=== PATIENT | female | born 1985 | race African-American/Black ===

== ENCOUNTER 2020-04-10 19:29 | Emergency (ER) | payer SELFPAY ==
[~2020-04-10] VITALS: Ht 165.1 cm; Wt 65.0 kg
--- NOTE | 2020-04-10 21:08 | RAD ---
Exam: CT head and cervical spine without contrast INDICATION: Head and neck pain, trauma TECHNIQUE: Sequential axial images through the head and cervical spine were obtained without the administration of IV contrast. Comparisons: None FINDINGS: Head No focal parenchymal lesion or hemorrhage is identified. There is no midline shift or sulcal effacement. No acute vascular territory infarction is identified. Delarosa-white distinction is preserved. The ventricular system is within normal limits without compression hydrocephalus. The basal cisterns are well maintained. The visualized portions of the paranasal sinuses and mastoid air cells are well-pneumatized. No acute fractures. Cervical spine: Vertebral body heights and alignment are well-maintained. Fracture to the cervical spine is not identified. No significant spondylotic change in the cervical spine. Visualized soft tissues are unremarkable. IMPRESSION: 1. No acute intracranial abnormality. 2. Negative CT C-spine for acute traumatic injury. Exposure: One or more of the following in the visualized dose reduction techniques were utilized for this examination: 1. Automated exposure control 2. Adjustment of the MA and/or KV according to patient size Use of iterative of reconstructive technique Electronically signed by: Michael Cristina MD (04/10/2020 9:05 PM) [id number]
[2020-04-10] MEDS ORDERED: DEXAMETHASONE 4 MG TABLET PO SCH (22:00)
[2020-04-10] MEDS ORDERED: diazePAM 5 MG TABLET PO ONE (22:00)
[2020-04-10] MEDS ORDERED: NAPR-514 PO (22:18)
[2020-04-10] MEDS ORDERED: CYCL10TA2 PO (22:18)
--- NOTE | 2020-04-10 22:18 | PHYS DOC ---
Past Medical History Past Medical History: No Pertinent History Past Surgical History: No Surgical History Smoking Status: Never Smoker Alcohol Use: None General Adult EDM: Chief Complaint: HEAD INJURY/TRAUMA HPI: HPI: Patient is a 34 year old AA female, accompanied by her , who presents to the emergency room after being struck by falling 15 ft 2x8 boards at [employer]. Patient states that she and her were loading lumbar when lumbar came falling down and struck her left side of her neck and head patient reports a brief loss of consciousness, she denies any nausea or vomiting. She currently complains of head and neck pain. She denies any vision changes, back pain, saddle anesthesia, or loss of bowel/bladder control. The patient denies any shortness of breath, hemoptysis, cough, numbness, tingling, or weakness. She currently reports her pain is 8 out of 10 on the pain scale, she denies any alleviating factors, the pain is worse with movement of her head. Review of Systems: Review of Systems: Complete ROS is negative unless otherwise stated in the HPI. Heart Score: Risk Factors: Risk Factors: DM, Current or recent (<one month) smoker, HTN, HLP, family history of CAD, obesity. Risk Scores: Score 0 - 3: 2.5% MACE over next 6 weeks - Discharge Home Score 4 - 6: 20.3% MACE over next 6 weeks - Admit for Clinical Observation Score 7 - 10: 72.7% MACE over next 6 weeks - Early Invasive Strategies Current Medications: Current Medications Medications (Trade) Dose Ordered Sig/Bryan Start Time Stop Time Status Last Admin Dose Admin Dexamethasone (Decadron) 10 mg 1X 04/10/20 22:00 Diazepam (Valium) 5 mg 1X ONCE 04/10/20 22:00 04/10/20 22:01 DC Allergies: Allergies: Allergies Coded Allergies Type Severity Reaction Last Updated Verified No Known Drug Allergies 04/10/20 No Physical Exam: PE: Constitutional: Well developed, well nourished, no acute distress, non-toxic appearance. [] HENT: Normocephalic, atraumatic, bilateral external ears normal, nose normal. [] Eyes: PERRLA, EOMI, conjunctiva normal, no discharge. [] Neck: Normal range of motion, supple, no stridor; bony tenderness without deformity or crepitus present patient in c-collar; right cervical paraspinal tenderness to palpation, tenderness to palpation of right sternocleidomastoid muscle, no bruising or abrasions [] Cardiovascular:Heart rate regular rhythm Lungs & Thorax: Respirations even and unlabored, no retractions, no respiratory distress Abdomen: soft, no tenderness Skin: Warm, dry, no erythema, no rash. [] Back: No bony tenderness or deformity no CVA tenderness.; Right lumbar paraspinal tenderness to palpation, negative straight leg lift [] Extremities: No tenderness, no cyanosis, ROM intact, no edema. [] Neurologic: Alert and oriented X 3, normal motor function, normal sensory function, no focal deficits noted. [] Psychologic: Affect normal, judgement normal, mood normal. [] Current Patient Data: Vital Signs: Vital Signs Date Time Temp Pulse Resp B/P (MAP) Pulse Ox O2 Delivery O2 Flow Rate FiO2 04/10/20 20:53 76 107/61 (76) 99 Room Air 04/10/20 20:23 23 04/10/20 19:32 98.8 98.8 EKG: EKG: [] Radiology/Procedures: Radiology/Procedures: PROCEDURE: CT HEAD AND CERVICAL SPINE WO Exam: CT head and cervical spine without contrast INDICATION: Head and neck pain, trauma TECHNIQUE: Sequential axial images through the head and cervical spine were obtained without the administration of IV contrast. Comparisons: None FINDINGS: Head No focal parenchymal lesion or hemorrhage is identified. There is no midline shift or sulcal effacement. No acute vascular territory infarction is identified. Delarosa-white distinction is preserved. The ventricular system is within normal limits without compression hydrocephalus. The basal cisterns are well maintained. The visualized portions of the paranasal sinuses and mastoid air cells are well-pneumatized. No acute fractures. Cervical spine: Vertebral body heights and alignment are well-maintained. Fracture to the cervical spine is not identified. No significant spondylotic change in the cervical spine. Visualized soft tissues are unremarkable. IMPRESSION: 1. No acute intracranial abnormality. 2. Negative CT C-spine for acute traumatic injury.[] Course & Med Decision Making: Course & Med Decision Making Pertinent Labs and Imaging studies reviewed. (See chart for details) Patient presented to the emergency room for evaluation following a head injury with brief loss of consciousness CT head and neck were negative for any acute findings No bony tenderness of thoracic or lumbar spine to palpation, there is right paraspinal tenderness to palpation, patient declined x-ray at this time. She was given 5 mg of Valium p.o. and 10 mg of Decadron p.o. in the emergency department. Prescriptions were written for Flexeril and naproxen. The patient was provided with head injury cervical strain and will low back strain instructions she was encouraged to fill the prescriptions using as directed apply ice to sore areas for the first 48 hours then apply heat or ice to sore areas as needed for comfort. She was encouraged to return to the emergency room if her symptoms worsened. Follow-up with her primary care doctor in the next 1 to 2 days. Patient and her verbalized an understanding of home care, medications, follow-up, and return to ED instructions and was in agreement with the plan of care. [] Pastor Disclaimer: Dragon Disclaimer: This electronic medical record was generated, in whole or in part, using a voice recognition dictation system. Departure Departure Impression: Primary Impression: Head injury, closed, with brief LOC Additional Impressions: Cervical strain, acute Qualified Codes: S16.1XXA - Strain of muscle, fascia and tendon at neck level, initial encounter Strain of lumbar paraspinal muscle Qualified Codes: S39.012A - Strain of muscle, fascia and tendon of lower back, initial encounter Disposition: 01 DC HOME SELF CARE/HOMELESS Condition: STABLE Referrals: UNKNOWN PCP NAME (PCP) Patient Instructions: Cervical Sprain, [id number], Head Injury, Adult, [id number], Low Back Strain with Rehab-SportsMed Additional Instructions: Follow the head injury precautions provided. Fill the prescription(s) and use as directed. Apply heat or ice for to sore areas as needed for comfort. Activity as tolerated. Follow up with your primary care doctor IN 1-2 days, return to the ER if symptoms worsen. Scripts Naproxen (NAPROXEN) 500 Mg Tablet 1 TAB PO BID PRN for PAIN for 10 Days, #20 TAB 0 Refills Prov: NAYELI JOHNSON APRN 04/10/20 Cyclobenzaprine Hcl (CYCLOBENZAPRINE HCL) 10 Mg Tablet 1 TAB PO TID PRN for MUSCLE PAIN for 10 Days, #30 TAB 0 Refills Prov: NAYELI JOHNSON APRN 04/10/20 NAYELI JOHNSON APRN Apr 10, 2020 22:18
[2020-04-10 22:23] VITALS: BP 113/71
== END 2020-04-10 22:23 | disposition home or self-care (01) ==
LOC: ER 19:29
DX: S16.1XXA Strain of muscle, fascia and tendon at neck level, initial encounter (principal); S39.012A Strain of muscle, fascia and tendon of lower back, initial encounter; S06.891A Other specified intracranial injury with loss of consciousness of 30 minutes or less, initial encounter; W18.39XA Other fall on same level, initial encounter; Y93.89 Activity, other specified; Y92.89 Other specified places as the place of occurrence of the external cause; Y99.8 Other external cause status
CPT/HCPCS: 70450; 72125; 99285